=== PATIENT | male | born 1960 | race Caucasian/White ===

== ENCOUNTER 2017-01-26 16:22 | Emergency (ER) | payer MEDICAID, OTHER ==
[~2017-01-26] VITALS: Ht 188 cm; Wt 99.8 kg
[2017-01-26] MEDS ORDERED: FUROSEMIDE 40 MG/4 ML VIAL IV ONE (16:45)
[2017-01-26 18:06] LABS: Allen Test Yes; Base Excess -3.4 mmol/L (-2.0-2.0); Blood 02Sat 91.5 % (96-100); Blood COHb 0.6 % (0.5-1.5); Blood MetHb 0.3 % (0.0-1.5); HCO3 23.1 mmol/L (22-26.0); HHb 8.4 % (0.0-5.0); MODE NASAL CANNULA; O2Hb 90.7 % (94.0-97.0); PCO2 47.5 mmHg (35.0-45.0); PCO2(T) 47.5 mmHg (35.0-45.0); PO2 67.9 mmHg (80.0-100.0); PO2(T) 67.9 mmHg (80.0-100.0); Sample Type Arterial; pH 7.305 (7.350-7.450)
[2017-01-26] MEDS ORDERED: FUROSEMIDE 40 MG/4 ML VIAL ONE (19:47)
[2017-01-26] MEDS ORDERED: METOPROLOL TARTRATE 50 MG TAB PO ONE (20:15)
[2017-01-26 20:20] LABS: Hematocrit 38.7 % (41.0-53.0); Hemoglobin 12.6 g/dL (13.5-17.5); Mean Corpuscular Hemoglobin 31.5 pg (28.0-32.0); Mean Corpuscular Hgb Conc. 32.5 g/dL (32.0-36.0); Mean Corpuscular Volume 97.1 fL (80.0-100.0); Mean Platelet Volume 8.3 fL (6.9-10.8); Platelet Count (auto) 394 10^3/uL (140-450); Red Cell Distribution Width 17.9 % (11.8-14.3)
[2017-01-26 20:28] VITALS: BP 154/94
[2017-01-26 20:31] LABS: Albumin 3.2 g/dL (3.4-5.0); Anion Gap 9 (5-15); BUN/Creatinine Ratio 15.6; Blood Urea Nitrogen 12 mg/dL (7-18); Calcium 7.8 mg/dL (8.5-10.1); Carbon Dioxide 25 mmol/L (21-32); Chloride 110 mmol/L (98-107); GFR African American 134 mL/min; GFR Non-African American 111 mL/min; Glucose 233 mg/dL (74-106); Magnesium 2.8 mg/dL (1.6-2.6); Potassium 4.9 mmol/L (3.5-5.1); Sodium 144 mmol/L (136-145)
[2017-01-26 20:37] LABS: Metamyelocytes % 0; Myelocytes % 0; Promyelocytes % 0; Reactive Lymphocytes 0
[2017-01-26 20:38] LABS: B-Type Natriuretic Peptide 260.95 pg/mL (0-100)
[2017-01-26 20:42] LABS: Alkaline Phosphatase 214 U/L (45-117); Aspartate Aminotransferase 58 U/L (15-37); Bilirubin, Total 0.2 mg/dL (0.2-1.0); Total Protein 7.3 g/dL (6.4-8.2)
[2017-01-26 20:54] LABS: Temperature: 21.9 C (20.0-25.0)
[2017-01-26 22:27] LABS: Giant Platelets Few; Platelet Estimate Adequate
== END 2017-01-26 21:10 | disposition left against medical advice (07) ==
LOC: EDUNIT# 16:22 → ER 16:22
DX: J90 Pleural effusion, not elsewhere classified (principal); J80 Acute respiratory distress syndrome; C34.90 Malignant neoplasm of unspecified part of unspecified bronchus or lung; J44.9 Chronic obstructive pulmonary disease, unspecified; I10 Essential (primary) hypertension; Z53.29 Procedure and treatment not carried out because of patient's decision for other reasons
CPT/HCPCS: 36415; 36600; 71010; 80053; 82805; 83735; 83880; 84484; 85007; 85027; 93005; 96374; 99285; J1940